=== PATIENT | male | born 1940 | race Caucasian/White ===

== ENCOUNTER 2021-07-11 01:20 | Inpatient (IN) ==
[2021-07-11] MEDS ORDERED: OPTIRAY 320 125ml IV ONE (01:41)
[2021-07-11] MEDS ORDERED: LORazepam 2 MG/1 ML VIAL ONE ×2 (01:43→02:24)
[2021-07-11 01:50] LABS: Basophils # (auto) 0.03 K/uL (0-0.2); Basophils % (auto) 0.4 %; Eosinophils # (auto) 0.33 K/uL (0-0.5); Eosinophils % (auto) 4.2 %; Hematocrit (blood only) 39.3 % (42-52); Hemoglobin 13.1 g/dL (14.0-18.0); Immature Granulocytes # (auto) 0.02 K/uL (0.00-0.02); Immature Granulocytes % (auto) 0.3 %; Lymphocytes # (auto) 2.77 K/uL (1.2-3.4); Lymphocytes % (auto) 34.8 %; Mean Corpuscular Hemoglobin 31.6 pg (25-34); Mean Corpuscular Hgb Conc 33.3 g/dL (32-36); Mean Corpuscular Volume 94.7 fL (80-100); Mean Platelet Volume 9.2 fL (7.4-10.4); Monocytes # (auto) 0.96 K/uL (0.11-0.59); Monocytes % (auto) 12.1 %; Neutrophils # (auto) 3.84 K/uL (1.4-6.5); Neutrophils % (auto) 48.2 %; Platelet Count 338 K/uL (130-400); RDW Coefficient of Variation 14.1 % (11.5-14.5); RDW Standard Deviation 48.8 fL (36.4-46.3); Red Blood Count 4.15 M/uL (4.7-6.1); White Blood Count 7.95 K/uL (4.8-10.8)
[2021-07-11 02:05] LABS: Alanine Aminotransferase 17 U/L (7-52); Albumin Globulin Ratio 1.3 (0.9-2); Albumin Level 3.9 gm/dl (3.4-5.0); Alkaline Phosphatase 117 U/L (34-104); Anion Gap 7 (3-11); Aspartate Aminotransferase 17 U/L (13-39); BUN Creatinine Ratio 15.2 (10-20); Bilirubin,Total 0.4 mg/dl (0.2-1.0); Blood Urea Nitrogen 16 mg/dl (6-23); Calcium 9.6 mg/dl (8.5-10.1); Carbon Dioxide 27 mmol/L (21-32); Chloride 105 mmol/L (98-107); Est GFR (African American) 76.8 ml/min; Est GFR (Non-African American) 66.3 ml/min; Globulin 2.9 gm/dl (2.5-4.0); Glucose 90 mg/dl (70-99(Fasting)); Magnesium 2.1 mg/dl (1.7-2.4); Sodium 139 mmol/L (136-145); Total Protein 6.8 gm/dl (6.0-8.3)
[2021-07-11 02:07] LABS: Troponin I High Sensitivity 16.2 pg/ml (0-20)
--- NOTE | 2021-07-11 02:11 | Emergency Department Note ---
History of Present Illness General Chief complaint: Seizure Time Seen by Provider: 07/11/21 01:22 Source: patient, family and EMS Mode of arrival: EMS Limitations: altered mental status History of Present Illness This patient is an 81-year-old male who comes in after having altered mental status. He went to bed at 930 and was normal and his said he woke up shouting and mumbling and confused. He similar episodes in the past and a s troke work-up and family tells me that he had microscopic brain bleeds. He is on no blood thinners. He was in his usual state of health they are in town visiting for a they are from [place]. He was fine all day has had no recent fever no trauma he does have a history of seizures and may have missed a dose of the lamictal. Paramedics called and they said that he was confused and had a right-sided facial droop they thought and so we called a stroke alert he immediately went to CAT scan her and I talked to family in the meantime. The patient did have a blood sugar in the field which was 96 and has stable vital signs. Home Medications Medication Instructions Recorded Confirmed Type acetaminophen 500 mg tablet 1,000 mg PO DIRECTED PRN 07/11/21 07/11/21 History (Tylenol Extra Strength) amlodipine 5 mg tablet 5 mg PO DAILY 07/11/21 07/11/21 History duloxetine 30 mg capsule,delayed 30 mg PO DAILY 07/11/21 07/11/21 History release (Cymbalta) ibuprofen 200 mg tablet (Advil) 400 - 600 mg PO DIRECTED PRN 07/11/21 07/11/21 History lamotrigine 100 mg tablet 200 mg PO BID #60 tab 07/11/21 07/11/21 Rx (Lamictal) pravastatin 80 mg tablet 80 mg PO HS 07/11/21 07/11/21 History sotalol 80 mg tablet 80 mg PO QAM 07/11/21 07/11/21 History tamsulosin 0.4 mg capsule (Flomax) 0.4 mg PO HS 07/11/21 07/11/21 History Allergies Allergy/AdvReac Type Severity Reaction Status Date / Time cefuroxime [From Ceftin] Allergy Intermediate ITCHINESS Verified 07/11/21 02:02 cephalexin [From Keflex] Allergy Intermediate ITCHINESS Verified 07/11/21 02:02 Past Med/Surg History Medical History (Updated 07/12/21 @ 12:09 by Jack Haque MD) Atrial fibrillation BPH (benign prostatic hyperplasia) Hard of hearing Hypertension Seizure Family History (Updated 07/11/21 @ 03:31 by Rox Horn DO) Other Family history non-contributory Social History Smoking Status: Unknown if ever smoked Hx Substance Use: No Preferred Language: [place] Islander Sharepoint Net Developer Required: No Current Living Situation: Family Feels Safe at Home: Yes Assistive Devices: None Immunizations: Past medical historyseizure history of stroke. Questionable brain bleed. He has had a watchman and A. fib. He does have some mild cognitive decline ac cording to family Social history he is and lives with his in [place] Review of Systems A total of 10 systems reviewed and were otherwise negative Physical Exam Vital Signs Vital Signs - 24 hr 07/11/21 01:39 07/11/21 01:40 07/11/21 01:50 Temperature 36.6 C Temperature Source Axillary Pulse Rate 73 116 H Pulse Rate from SpO2 Sensor 140 H Respiratory Rate 35 H 41 H 24 Respiratory Effort / Characteristics Non-Labored Spontaneous Respiratory Depth Normal Blood Pressure 174/111 H Blood Pressure Mean 132 Blood Pressure Position Lying Pulse Oximetry 99 95 Oxygen Delivery Method Room Air Non-rebreather Oxygen Flow Rate 15 Sepsis Recent Fever Within 48 Hours No Sepsis New/Unexplained Change in Mental Status Yes Sepsis Action Taken by Nursing No Action Required 07/11/21 02:00 07/11/21 02:10 Temperature Temperature Source Pulse Rate 144 H 146 H Pulse Rate from SpO2 Sensor Respiratory Rate 35 H 25 H Respiratory Effort / Characteristics Respiratory Depth Blood Pressure Blood Pressure Mean Blood Pressure Position Pulse Oximetry 98 98 Oxygen Delivery Method Non-rebreather Non-rebreather Oxygen Flow Rate 15 15 Sepsis Recent Fever Within 48 Hours Sepsis New/Unexplained Change in Mental Status Sepsis Action Taken by Nursing General: Well developed well nourished older male who is speaking full sentences but appears to be confused and anxious but in no acute respiratory distress, breathing comfortably on room air. Normal speech HEENT: Normal cephalic atraumatic. Pupils are equal round and reactive to light. Extraocular movements are intact. Oropharynx is pink with moist mucous membranes. No swelling of the mouth lips or tongue. No facial asymmetry or droop Neck: Supple with a midline trachea. No meningeal signs or stiffness, no JVD or bruits. No Stridor. Chest: Clear to auscultation bilaterally. No wheezes or rhonchi. No increased work of breathing. Heart: Regular rate and rhythm without murmurs or gallops. Abdomen: Soft nontender, nondistended without rebound guarding or rigidity. Extremities: No cyanosis clubbing or edema. No calf tenderness or assymetry Spine/Back. Non tender to palpation. No CVA tenderness Skin: Good turgor without rashes. Neurologic exam: Cranial nerves two through 12 are intact. Motor and sensation are intact and symmetrical throughout. No focal neurologic deficits. His speech is not slurred but he is clearly confused and does not answer questions appropriately Course Administered Medications Discontinued Medications Amlodipine Besylate (Amlodipine Besylate 5 Mg Tab) 5 mg PO DAILY ARISTIDES Stop: 08/10/21 08:59 Last Admin: 07/11/21 08:33 Dose: 5 mg Documented by: [id number] Duloxetine HCl (Duloxetine Hcl 30 Mg Cap) 30 mg PO DAILY ARISTIDES Stop: 08/10/21 08:59 Last Admin: 07/11/21 08:34 Dose: 30 mg Documented by: [id number] Levetiracetam 2,000 mg/ Sodium (Chloride) 270 mls @ 999 mls/hr IV NOW STA Stop: 07/11/21 02:19 Last Infusion: 07/11/21 02:50 Dose: 0 mls/hr Documented by: [id number] Admin: 07/11/21 02:26 Dose: 999 mls/hr Documented by: [id number] Lactated Ringer's (Lr) 1,000 mls @ 100 mls/hr IV .Q10H ARISTIDES Stop: 07/12/21 00:49 Last Infusion: 07/11/21 13:09 Dose: 0 mls/hr Documented by: [id number] Admin: 07/11/21 06:08 Dose: 100 mls/hr Documented by: [id number] Ioversol (Optiray 320 125ml) 125 ml IV ONCE ONE Stop: 07/11/21 01:42 Last Admin: 07/11/21 01:41 Dose: 118 ml Documented by: [id number] Lamotrigine (Lamotrigine 100 Mg Tab) 200 mg PO QAM ARISTIDES Stop: 08/10/21 08:59 Last Admin: 07/11/21 08:34 Dose: 200 mg Documented by: [id number] Lorazepam (Lorazepam 2 Mg/1 Ml Vial) Confirm Administered Dose 2 mg .ROUTE .STK- MED ONE Stop: 07/11/21 01:44 Last Admin: 07/11/21 02:00 Dose: 2 mg Documented by: [id number] Lorazepam (Lorazepam 2 Mg/1 Ml Vial) 1 mg IV NOW STA Stop: 07/11/21 02:24 Last Admin: 07/11/21 02:25 Dose: 1 mg Documented by: [id number] Lorazepam (Lorazepam 2 Mg/1 Ml Vial) Confirm Administered Dose 2 mg .ROUTE .STK- MED ONE Stop: 07/11/21 02:25 Last Admin: 07/11/21 02:26 Dose: Not Given Documented by: [id number] Sotalol HCl (Sotalol Hcl 80 Mg Tab) [facility] Stop: 08/10/21 08:59 Last Admin: 07/11/21 08:34 Dose: 80 mg Documented by: [id number] Critical Care Time Critical Care Time: Yes Total Critical Care Time: 45 Due to the patient's acute neurologic event, concern for stroke, consultation with stroke neurology, need to give expediant care, seizures and frequent neurologic reassessment with multiple medications given, I have personally spent greater than 45 minutes of critical care time in the direct management of this patient. This includes bedside care, interpretation of diagnostic studies, and testing, discussion with consultants, patient, and family members, and other required patient management activities. This 30 minutes is in excess of all separately billable procedures. Medical Decision Making Differential Diagnosis Stroke, intracranial hemorrhage, seizure, TIA, electrolyte or metabolic abnormality, intracranial mass, arrhythmia Medical Records Attestation: I reviewed the patient's medical records. Home Medications Current Medication List: was personally reviewed by me Laboratory Data Attestation: I reviewed the patient's lab results. Result diagrams: 07/11/21 01:20 07/11/21 01:20 Lab Results 07/11/21 07/11/21 07/11/21 Range/Units 01:20 01:20 01:20 WBC 7.95 (4.8-10.8) K/uL RBC 4.15 L (4.7-6.1) M/uL Hgb 13.1 L (14.0-18.0) g/dL Hct 39.3 L (42-52) % MCV 94.7 (80-100) fL MCH 31.6 (25-34) pg MCHC 33.3 (32-36) g/dL RDW Std Deviation 48.8 H (36.4-46.3) fL RDW Coeff of Jm 14.1 (11.5-14.5) % Plt Count 338 (130-400) K/uL MPV 9.2 (7.4-10.4) fL Immature Gran % (Auto) 0.3 % Neut % (Auto) 48.2 % Lymph % (Auto) 34.8 % [place] % (Auto) 12.1 % Eos % (Auto) 4.2 % Baso % (Auto) 0.4 % Neut # (Auto) 3.84 (1.4-6.5) K/uL Lymph # (Auto) 2.77 (1.2-3.4) K/uL [place] # (Auto) 0.96 H (0.11-0.59) K/uL Eos # (Auto) 0.33 (0-0.5) K/uL Baso # (Auto) 0.03 (0-0.2) K/uL Immature Gran # (Auto) 0.02 (0.00-0.02) K/uL Absolute Nucleated RBC SERVICE STATION CONSOLE OPERATOR Nucleated RBC % (auto) SERVICE STATION CONSOLE OPERATOR Neutrophils % (Manual) SERVICE STATION CONSOLE OPERATOR Band Neutrophils % SERVICE STATION CONSOLE OPERATOR Lymphocytes % (Manual) SERVICE STATION CONSOLE OPERATOR Prolymphocyte % SERVICE STATION CONSOLE OPERATOR Reactive Lymphs % (Man) SERVICE STATION CONSOLE OPERATOR Monocytes % (Manual) SERVICE STATION CONSOLE OPERATOR Eosinophils % (Manual) SERVICE STATION CONSOLE OPERATOR Basophils % (Manual) SERVICE STATION CONSOLE OPERATOR Metamyelocytes % (Man) SERVICE STATION CONSOLE OPERATOR Myelocytes % (Man) SERVICE STATION CONSOLE OPERATOR Promyelocytes % (Man) SERVICE STATION CONSOLE OPERATOR Blast Cells % (Manual) SERVICE STATION CONSOLE OPERATOR Plasma Cell % (Manual) SERVICE STATION CONSOLE OPERATOR Other Cells % SERVICE STATION CONSOLE OPERATOR Nucleated RBC % SERVICE STATION CONSOLE OPERATOR Neutrophils # (Manual) SERVICE STATION CONSOLE OPERATOR Band Neutrophils # SERVICE STATION CONSOLE OPERATOR Total Absolute Neuts SERVICE STATION CONSOLE OPERATOR Lymphocytes # (Manual) SERVICE STATION CONSOLE OPERATOR Prolymphocyte # SERVICE STATION CONSOLE OPERATOR Reactive Lymphs # SERVICE STATION CONSOLE OPERATOR Total Abs Lymphocytes SERVICE STATION CONSOLE OPERATOR Monocytes # (Manual) SERVICE STATION CONSOLE OPERATOR Eosinophils # (Manual) SERVICE STATION CONSOLE OPERATOR Basophils # (Manual) SERVICE STATION CONSOLE OPERATOR Metamyelocytes # (Man) SERVICE STATION CONSOLE OPERATOR Myelocytes # (Manual) SERVICE STATION CONSOLE OPERATOR Promyelocytes # (Man) SERVICE STATION CONSOLE OPERATOR Blast Cells # (Man) SERVICE STATION CONSOLE OPERATOR Plasma Cell # (Manual) SERVICE STATION CONSOLE OPERATOR Other Cells # SERVICE STATION CONSOLE OPERATOR Nucleated RBCs # (Man) SERVICE STATION CONSOLE OPERATOR Hypersegmented Neuts SERVICE STATION CONSOLE OPERATOR Hyposegmented Neuts SERVICE STATION CONSOLE OPERATOR Hypogranular Neuts SERVICE STATION CONSOLE OPERATOR Large Granular Lymphs SERVICE STATION CONSOLE OPERATOR # Lrg Granular Lymphs SERVICE STATION CONSOLE OPERATOR Hairy Cells SERVICE STATION CONSOLE OPERATOR Smudge Cells SERVICE STATION CONSOLE OPERATOR Toxic Granulation SERVICE STATION CONSOLE OPERATOR Toxic Vacuolation SERVICE STATION CONSOLE OPERATOR Dohle Bodies SERVICE STATION CONSOLE OPERATOR Patsy Rods SERVICE STATION CONSOLE OPERATOR Platelet Estimate SERVICE STATION CONSOLE OPERATOR Hypogranular Platelets SERVICE STATION CONSOLE OPERATOR Clumped Platelets SERVICE STATION CONSOLE OPERATOR Giant Platelets SERVICE STATION CONSOLE OPERATOR Platelet Satelliting SERVICE STATION CONSOLE OPERATOR RBC Morphology SERVICE STATION CONSOLE OPERATOR Polychromasia SERVICE STATION CONSOLE OPERATOR Hypochromasia SERVICE STATION CONSOLE OPERATOR Poikilocytosis SERVICE STATION CONSOLE OPERATOR Basophilic Stippling SERVICE STATION CONSOLE OPERATOR Anisocytosis SERVICE STATION CONSOLE OPERATOR Microcytosis SERVICE STATION CONSOLE OPERATOR Macrocytosis SERVICE STATION CONSOLE OPERATOR Spherocytes SERVICE STATION CONSOLE OPERATOR Pappenheimer Bodies SERVICE STATION CONSOLE OPERATOR Sickle Cells SERVICE STATION CONSOLE OPERATOR Target Cells SERVICE STATION CONSOLE OPERATOR Tear Drop Cells SERVICE STATION CONSOLE OPERATOR Ovalocytes SERVICE STATION CONSOLE OPERATOR Stomatocytes SERVICE STATION CONSOLE OPERATOR Chavez-Chassell Bodies SERVICE STATION CONSOLE OPERATOR Echinocytes SERVICE STATION CONSOLE OPERATOR Acanthocytes (Spur) SERVICE STATION CONSOLE OPERATOR Rouleaux SERVICE STATION CONSOLE OPERATOR RBC Agglutinates SERVICE STATION CONSOLE OPERATOR Schistocytes SERVICE STATION CONSOLE OPERATOR RBC Morph Comment SERVICE STATION CONSOLE OPERATOR Sezary Cell SERVICE STATION CONSOLE OPERATOR PT Cancelled INR Cancelled APTT Cancelled PTT Ratio Cancelled Sodium 139 (136-145) mmol/L Potassium 4.0 (3.5-5.1) mmol/L Chloride 105 (98-107) mmol/L Carbon Dioxide 27 (21-32) mmol/L Anion Gap 7 (3-11) BUN 16 (6-23) mg/dl Creatinine 1.05 (0.6-1.4) mg/dl Est Cr Clr Drug Dosing Not Reportable Est GFR ( Amer) 76.8 ml/min Est GFR (Non-Af Amer) 66.3 ml/min BUN/Creatinine Ratio 15.2 (10-20) Glucose 90 (70-99(Fasting)) mg/dl POC Glucose (70-99) mg/dl Calcium 9.6 (8.5-10.1) mg/dl Magnesium 2.1 (1.7-2.4) mg/dl Total Bilirubin 0.4 (0.2-1.0) mg/dl AST 17 (13-39) U/L ALT 17 (7-52) U/L Alkaline Phosphatase 117 H (34-104) U/L Troponin I High Sens 16.2 (0-20) pg/ml Total Protein 6.8 (6.0-8.3) gm/dl Albumin 3.9 (3.4-5.0) gm/dl Globulin 2.9 (2.5-4.0) gm/dl Albumin/Globulin Ratio 1.3 (0.9-2) 07/11/21 Range/Units 01:39 WBC (4.8-10.8) K/uL RBC (4.7-6.1) M/uL Hgb (14.0-18.0) g/dL Hct (42-52) % MCV (80-100) fL MCH (25-34) pg MCHC (32-36) g/dL RDW Std Deviation (36.4-46.3) fL RDW Coeff of Jm (11.5-14.5) % Plt Count (130-400) K/uL MPV (7.4-10.4) fL Immature Gran % (Auto) % Neut % (Auto) % Lymph % (Auto) % [place] % (Auto) % Eos % (Auto) % Baso % (Auto) % Neut # (Auto) (1.4-6.5) K/uL Lymph # (Auto) (1.2-3.4) K/uL [place] # (Auto) (0.11-0.59) K/uL Eos # (Auto) (0-0.5) K/uL Baso # (Auto) (0-0.2) K/uL Immature Gran # (Auto) (0.00-0.02) K/uL Absolute Nucleated RBC Nucleated RBC % (auto) Neutrophils % (Manual) Band Neutrophils % Lymphocytes % (Manual) Prolymphocyte % Reactive Lymphs % (Man) Monocytes % (Manual) Eosinophils % (Manual) Basophils % (Manual) Metamyelocytes % (Man) Myelocytes % (Man) Promyelocytes % (Man) Blast Cells % (Manual) Plasma Cell % (Manual) Other Cells % Nucleated RBC % Neutrophils # (Manual) Band Neutrophils # Total Absolute Neuts Lymphocytes # (Manual) Prolymphocyte # Reactive Lymphs # Total Abs Lymphocytes Monocytes # (Manual) Eosinophils # (Manual) Basophils # (Manual) Metamyelocytes # (Man) Myelocytes # (Manual) Promyelocytes # (Man) Blast Cells # (Man) Plasma Cell # (Manual) Other Cells # Nucleated RBCs # (Man) Hypersegmented Neuts Hyposegmented Neuts Hypogranular Neuts Large Granular Lymphs # Lrg Granular Lymphs Hairy Cells Smudge Cells Toxic Granulation Toxic Vacuolation Dohle Bodies Patsy Rods Platelet Estimate Hypogranular Platelets Clumped Platelets Giant Platelets Platelet Satelliting RBC Morphology Polychromasia Hypochromasia Poikilocytosis Basophilic Stippling Anisocytosis Microcytosis Macrocytosis Spherocytes Pappenheimer Bodies Sickle Cells Target Cells Tear Drop Cells Ovalocytes Stomatocytes Chavez-Chassell Bodies Echinocytes Acanthocytes (Spur) Rouleaux RBC Agglutinates Schistocytes RBC Morph Comment Sezary Cell PT INR APTT PTT Ratio Sodium (136-145) mmol/L Potassium (3.5-5.1) mmol/L Chloride (98-107) mmol/L Carbon Dioxide (21-32) mmol/L Anion Gap (3-11) BUN (6-23) mg/dl Creatinine (0.6-1.4) mg/dl Est Cr Clr Drug Dosing Est GFR ( Amer) ml/min Est GFR (Non-Af Amer) ml/min BUN/Creatinine Ratio (10-20) Glucose (70-99(Fasting)) mg/dl POC Glucose 82 (70-99) mg/dl Calcium (8.5-10.1) mg/dl Magnesium (1.7-2.4) mg/dl Total Bilirubin (0.2-1.0) mg/dl AST (13-39) U/L ALT (7-52) U/L Alkaline Phosphatase (34-104) U/L Troponin I High Sens (0-20) pg/ml Total Protein (6.0-8.3) gm/dl Albumin (3.4-5.0) gm/dl Globulin (2.5-4.0) gm/dl Albumin/Globulin Ratio (0.9-2) Imaging Data Attestation: I personally reviewed and interpreted this imaging study as follows: My Impression: Head CTno hemorrhage or mass-effect. Radiologist's Impression: CTA of the head and neck as well as CT of the headstat rad readno acute findings ECG Data Attestation: I personally reviewed and interpreted this ECG as follows: Indication: + weakness Rate (beats per minute): 78 Rhythm: + normal sinus ECG Intervals/blocks: + First degree AV block, + Right Bundle branch block and + Prolonged QT ECG [place]: + Right axis deviation ECG ST segments: + Normal ST segments ECG Findings: + Other (Poor baseline) Comparison ECG Date: no prior available Additional Comments: EKG #2: Atrial fibrillation with rapid ventricular response and underlying bundle branch block. Compared to EKG #1 rate has increased MDM Narrative This patient comes in as described above aged strokes call a stroke alert we took him straight to CAT scan I saw him immediately upon arrival he was very confused but was otherwise nonfocal I do not appreciate a facial droop. He does have a seizure history is concerned that he may have had a seizure and was postictal. We did the CAT scans I reviewed the CAT scan of the head and talk to [facility], Dr. Soto. She did not recommend tPA based on the timeframe, the symptoms and history of possible microhemorrhages as well as the likelihood of a another diagnosis such as a postictal state. On my review of the CT, I do not see any hemorrhage or mass-effect the radiologist did call and confirm that there is no abnormality seen on the CTA of the head or neck. In the meantime I did talk to family and when reevaluating the patient he had a seizure this lasted less than a minute. I did order 2 mg of IV Ativan however he stopped seizing before he got the meds so he we gave him 1 mg Ativam IV initially and he quickly became post ictal and and somewhat agitated trying to get out of bed and confused so we gave another milligram of Ativan and had to us e some soft restraints. I also did load him with Keppra for prevention of any further seizures 2 g IV. I talked to Kings Pedroza our pharmacist who agreed with the plan. Have talked to the family multiple times they did tell me that he did not do well with Keppra because he had some cognitive issues and potentially some ambulatory issues but no allergic type reaction. I talked to him about risk and benefits I think for now we need to load him with something so he has no further seizures they are agreement with this it may be that there is a better long-term medication. Keppra in this situation will have the least interactions likely and hopefully prevent further seizures. The patient sherri coe was postictal and did require additional IV Ativan 1 mg and we used some soft restraints. He was started to talk and mumble and was waking up but was more agitated so I eventually gave another milligram of Ativan. He has no electrolyte or metabolic abnormalities which would cause him to seize he is no elevation of his troponin. His EKG just so A. fib that has a rapid rate. I suspect that the rapid rate is most likely from his agitation at this point. He has nothing to suggest a primary cardiac event. I did talk to the family at length the patient and is no longer seizing but he does remain postictal and somewhat confused. I do think he needs to be admitted for observation and m onitoring for further seizures. I have consulted Dr. Rox Horn to see the patient in the ER. Continuous cardiac monitoring: Orders placed in EMR for continuous cardiac monitoring. Upon my interpretation the patient was noted to be in A. fib with a rate of 120. He was agitated at the time however Impression & Plan Seizure, Atrial fibrillation, Altered mental status, Post-ictal state, Lab test negative for COVID-19 virus Discharge Plan Visit Data Chief Complaint: Seizure ED Provider: Jack Haque Discharge Problem: Seizure, Atrial fibrillation, Altered mental status, Post-ictal state, Lab test negative for COVID-19 virus Patient Disposition: Admitted As Inpatient Discharge Instructions Interventions: ED Discharge Assessment Last Done: 07/11/21 04:13 Discharge Problem: Atrial fibrillation Qualifiers: Atrial fibrillation type: unspecified Qualified Code(s): I48.91 - Unspecified atrial fibrillation Altered mental status Qualifiers: Altered mental status type: unspecified Qualified Code(s): R41.82 - Altered mental status, unspecified
[2021-07-11] MEDS ORDERED: LORazepam 2 MG/1 ML VIAL IV STA (02:23)
--- NOTE | 2021-07-11 03:36 | History & Physical Report ---
Date of Service July 11, 2021 Assessment & Plan (1) Altered mental status: Plan: Confusion. Most likely multi-factorial. Post-ictal + Ativan + missed medications, possible sundowning effect as well. Labs are largely unremarkable. CT Head and CTA Head/Neck with chronic changes. -Admit to PCU -Maintain 1:1 sitter -Soft limb restraints as patient is trying to remove medical equipment -Check UA, TSH, Ammonia for encephalopathy workup -Check MRI Brain -Frequent orientation -Avoid delirium-inducing medications (2) Seizure: Plan: reports longstanding history of seizures. He had several over the last 15 years. Was previously on Keppra which was discontinued due to minor side effects. Keppra loaded + Ativan in ER -Continue Lamictal -Seizure precautions -Check MRI Brain -Consider Neuro consultation if patient continues to seize (3) BPH (benign prostatic hyperplasia): Plan: Chronic. Stable -Continue Tamsulosin -Bladder scan as needed (4) Hypertension: Plan: Blood pressure acceptable -Continue Amlodipine -Monitor (5) Atrial fibrillation: Plan: Tachycardic with agitation, heart rate improves as patient calms down -Continue Sotalol -No anticoagulation - ?history of microhemorrhages in brain? Plan: F/E/N - LR at 100mL/hr x 2L, electroltyes WNL, regular diet as tolerated Ppx - low risk for DVT Code - Full per discussion with Dispo -Admit to PCU History of Present Illness Chief Complaint: seizure Primary Care Provider: DAREN SIMMONS Vladislav Alvarez is an 80yo male with history of AF, HTN, BPH presenting with confusion. Patient is from out of [facility], [facility]. He arrived in town with family yesterday for a tomorrow. Patient was in his usual state of health when he went to bed around 21:30. His reports he then woke up shouting, mumbling and confused. EMS was called - possible right facial droop noted. He presented to [facility] as a Code Stroke. Imaging obtained and unremarkable for acute hemorrhage or sig nificant stenosis/aneurysm. Patient then had a witnessed tonic-clonic seizure in the ER lasting < 1minute. , daugher and son-in-law are at bedside and provide additional history. The state the patient had no complaints during the day. He was eating well and acting his usual. He did possibly miss his PM medications. Daughter states that patient has become confused in the past with missing his medications. In the ER he was administered 3mg Ativan IV as well as Keppra load. He was confused and slightly combative during my encounter. He is unable to answer questions, follow commands or participate in the exam. Family is at bedside and is able to calm him down slightly. Allergies Allergy/AdvReac Type Severity Reaction Status Date / Time cefuroxime [From Ceftin] Allergy Intermediate ITCHINESS Verified 07/11/21 02:02 cephalexin [From Keflex] Allergy Intermediate ITCHINESS Verified 07/11/21 02:02 Home Medications Medication Instructions Recorded Confirmed Type acetaminophen 500 mg tablet 1,000 mg PO DIRECTED PRN 07/11/21 07/11/21 Histor y (Tylenol Extra Strength) amlodipine 5 mg tablet 5 mg PO DAILY 07/11/21 07/11/21 History duloxetine 30 mg capsule,delayed 30 mg PO DAILY 07/11/21 07/11/21 History release (Cymbalta) ibuprofen 200 mg tablet (Advil) 400 - 600 mg PO DIRECTED PRN 07/11/21 07/11/21 History lamotrigine 100 mg tablet See Rx Instructions .ROUTE .COMPLEX 07/11/21 07/11/21 History (Lamictal) pravastatin 80 mg tablet 80 mg PO HS 07/11/21 07/11/21 History sotalol 80 mg tablet 80 mg PO QAM 07/11/21 07/11/21 History tamsulosin 0.4 mg capsule (Flomax) 0.4 mg PO HS 07/11/21 07/11/21 History Past Med/Surg History Medical History (Updated 07/11/21 @ 03:30 by Rox Horn DO) Atrial fibrillation BPH (benign prostatic hyperplasia) Hard of hearing Hypertension Seizure Family History (Updated 07/11/21 @ 03:31 by Rox Horn DO) Other Family history non-contributory Social History Smoking Status: Unknown if ever smoked Preferred Language: Israeli Feels Safe at Home: Yes Review of Systems Review of Systems: Unobtainable due to cognitive status Physical Exam Physical Exam: General: patient restless, attempting to climb out of bed, does not answer questions or follow commands Skin: warm, dry, intact, no rashes or lesions HEENT: NC/AT, PERRL, anicteric sclera, conjunctiva without injection, external ear normal to inspection and nontender, nares patent, moist mucus membranes, dentition intact, no oropharyngeal lesions, neck supple, trachea midline, no LAD, no thyromegaly, no JVD Heart: +S1/S2, irregularly irregular, tachycardic, no m/r/g Lungs: equal air entry bilaterally, no rales/rhonchi/wheezes Abd: +BS, soft, NT/ND, no masses/organomegaly/ascites Ext: cool, 2+ pulses in UE/LE bilaterally, no clubbing/cyanosis or edema Neuro: patient confused, combative, moving all extremities with equal strength Results & Data Results & Data ([facility]) Vital Signs (Past 12 Hours) Vital Signs Temp Pulse Resp BP Pulse Ox 07/11/21 02:40 127 H 32 H 99 07/11/21 02:32 131 H 19 149/110 H 94 07/11/21 02:30 145 H 18 99 07/11/21 02:22 117 H 21 167/103 H 98 07/11/21 02:20 124 H 19 99 07/11/21 02:10 146 H 25 H 98 07/11/21 02:00 144 H 35 H 98 07/11/21 01:50 24 95 07/11/21 01:40 116 H 41 H 07/11/21 01:39 36.6 C 73 35 H 174/111 H 99 Laboratory Results Laboratory Results WBC 7.95 K/uL (4.8-10.8) 07/11/21 01:20 RBC 4.15 M/uL (4.7-6.1) L 07/11/21 01:20 Hgb 13.1 g/dL (14.0-18.0) L 07/11/21 01:20 Hct 39.3 % (42-52) L 07/11/21 01:20 MCV 94.7 fL (80-100) 07/11/21 01:20 MCH 31.6 pg (25-34) 07/11/21 01:20 MCHC 33.3 g/dL (32-36) 07/11/21 01:20 RDW Std Deviation 48.8 fL (36.4-46.3) H 07/11/21 01:20 RDW Coeff of Jm 14.1 % (11.5-14.5) 07/11/21 01:20 Plt Count 338 K/uL (130-400) 07/11/21 01:20 MPV 9.2 fL (7.4-10.4) 07/11/21 01:20 Immature Gran % (Auto) 0.3 % 07/11/21 01:20 Neut % (Auto) 48.2 % 07/11/21 01:20 Lymph % (Auto) 34.8 % 07/11/21 01:20 [place] % (Auto) 12.1 % 07/11/21 01:20 Eos % (Auto) 4.2 % 07/11/21 01:20 Baso % (Auto) 0.4 % 07/11/21 01:20 Neut # (Auto) 3.84 K/uL (1.4-6.5) 07/11/21 01:20 Lymph # (Auto) 2.77 K/uL (1.2-3.4) 07/11/21 01:20 [place] # (Auto) 0.96 K/uL (0.11-0.59) H 07/11/21 01:20 Eos # (Auto) 0.33 K/uL (0-0.5) 07/11/21 01:20 Baso # (Auto) 0.03 K/uL (0-0.2) 07/11/21 01:20 Immature Gran # (Auto) 0.02 K/uL (0.00-0.02) 07/11/21 01:20 Absolute Nucleated RBC COGNOS ANALYST 07/11/21 01:20 Nucleated RBC % (auto) COGNOS ANALYST 07/11/21 01:20 Neutrophils % (Manual) COGNOS ANALYST 07/11/21 01:20 Band Neutrophils % COGNOS ANALYST 07/11/21 01:20 Lymphocytes % (Manual) COGNOS ANALYST 07/11/21 01:20 Prolymphocyte % COGNOS ANALYST 07/11/21 01:20 Reactive Lymphs % (Man) COGNOS ANALYST 07/11/21 01:20 Monocytes % (Manual) COGNOS ANALYST 07/11/21 01:20 Eosinophils % (Manual) COGNOS ANALYST 07/11/21 01:20 Basophils % (Manual) COGNOS ANALYST 07/11/21 01:20 Metamyelocytes % (Man) COGNOS ANALYST 07/11/21 01:20 Myelocytes % (Man) COGNOS ANALYST 07/11/21 01:20 Promyelocytes % (Man) COGNOS ANALYST 07/11/21 01:20 Blast Cells % (Manual) COGNOS ANALYST 07/11/21 01:20 Plasma Cell % (Manual) COGNOS ANALYST 07/11/21 01:20 Other Cells % COGNOS ANALYST 07/11/21 01:20 Nucleated RBC % COGNOS ANALYST 07/11/21 01:20 Neutrophils # (Manual) COGNOS ANALYST 07/11/21 01:20 Band Neutrophils # COGNOS ANALYST 07/11/21 01:20 Total Absolute Neuts COGNOS ANALYST 07/11/21 01:20 Lymphocytes # (Manual) COGNOS ANALYST 07/11/21 01:20 Prolymphocyte # COGNOS ANALYST 07/11/21 01:20 Reactive Lymphs # COGNOS ANALYST 07/11/21 01:20 Total Abs Lymphocytes COGNOS ANALYST 07/11/21 01:20 Monocytes # (Manual) COGNOS ANALYST 07/11/21 01:20 Eosinophils # (Manual) COGNOS ANALYST 07/11/21 01:20 Basophils # (Manual) COGNOS ANALYST 07/11/21 01:20 Metamyelocytes # (Man) COGNOS ANALYST 07/11/21 01:20 Myelocytes # (Manual) COGNOS ANALYST 07/11/21 01:20 Promyelocytes # (Man) COGNOS ANALYST 07/11/21 01:20 Blast Cells # (Man) COGNOS ANALYST 07/11/21 01:20 Plasma Cell # (Manual) COGNOS ANALYST 07/11/21 01:20 Other Cells # COGNOS ANALYST 07/11/21 01:20 Nucleated RBCs # (Man) COGNOS ANALYST 07/11/21 01:20 Hypersegmented Neuts COGNOS ANALYST 07/11/21 01:20 Hyposegmented Neuts COGNOS ANALYST 07/11/21 01:20 Hypogranular Neuts COGNOS ANALYST 07/11/21 01:20 Large Granular Lymphs COGNOS ANALYST 07/11/21 01:20 # Lrg Granular Lymphs COGNOS ANALYST 07/11/21 01:20 Hairy Cells COGNOS ANALYST 07/11/21 01:20 Smudge Cells COGNOS ANALYST 07/11/21 01:20 Toxic Granulation COGNOS ANALYST 07/11/21 01:20 Toxic Vacuolation COGNOS ANALYST 07/11/21 01:20 Dohle Bodies COGNOS ANALYST 07/11/21 01:20 Patsy Rods COGNOS ANALYST 07/11/21 01:20 Platelet Estimate COGNOS ANALYST 07/11/21 01:20 Hypogranular Platelets COGNOS ANALYST 07/11/21 01:20 Clumped Platelets COGNOS ANALYST 07/11/21 01:20 Giant Platelets COGNOS ANALYST 07/11/21 01:20 Platelet Satelliting COGNOS ANALYST 07/11/21 01:20 RBC Morphology COGNOS ANALYST 07/11/21 01:20 Polychromasia COGNOS ANALYST 07/11/21 01:20 Hypochromasia COGNOS ANALYST 07/11/21 01:20 Poikilocytosis COGNOS ANALYST 07/11/21 01:20 Basophilic Stippling COGNOS ANALYST 07/11/21 01:20 Anisocytosis COGNOS ANALYST 07/11/21 01:20 Microcytosis COGNOS ANALYST 07/11/21 01:20 Macrocytosis COGNOS ANALYST 07/11/21 01:20 Spherocytes COGNOS ANALYST 07/11/21 01:20 Pappenheimer Bodies COGNOS ANALYST 07/11/21 01:20 Sickle Cells COGNOS ANALYST 07/11/21 01:20 Target Cells COGNOS ANALYST 07/11/21 01:20 Tear Drop Cells COGNOS ANALYST 07/11/21 01:20 Ovalocytes COGNOS ANALYST 07/11/21 01:20 Stomatocytes COGNOS ANALYST 07/11/21 01:20 [place] Bodies COGNOS ANALYST 07/11/21 01:20 Echinocytes COGNOS ANALYST 07/11/21 01:20 Acanthocytes (Spur) COGNOS ANALYST 07/11/21 01:20 Rouleaux COGNOS ANALYST 07/11/21 01:20 RBC Agglutinates COGNOS ANALYST 07/11/21 01:20 Schistocytes COGNOS ANALYST 07/11/21 01:20 RBC Morph Comment COGNOS ANALYST 07/11/21 01:20 Sezary Cell COGNOS ANALYST 07/11/21 01:20 PT Cancelled 07/11/21 01:20 INR Cancelled 07/11/21 01:20 APTT Cancelled 07/11/21 01:20 PTT Ratio Cancelled 07/11/21 01:20 Sodium 139 mmol/L (136-145) 07/11/21 01:20 Potassium 4.0 mmol/L (3.5-5.1) 07/11/21 01:20 Chloride 105 mmol/L (98-107) 07/11/21 01:20 Carbon Dioxide 27 mmol/L (21-32) 07/11/21 01:20 Anion Gap 7 (3-11) 07/11/21 01:20 BUN 16 mg/dl (6-23) 07/11/21 01:20 Creatinine 1.05 mg/dl (0.6-1.4) 07/11/21 01:20 Est Cr Clr Drug Dosing Not Reportable 07/11/21 01:20 Est GFR ( Amer) 76.8 ml/min 07/11/21 01:20 Est GFR (Non-Af Amer) 66.3 ml/min 07/11/21 01:20 BUN/Creatinine Ratio 15.2 (10-20) 07/11/21 01:20 Glucose 90 mg/dl (70-99(Fasting)) 07/11/21 01:20 POC Glucose 82 mg/dl (70-99) 07/11/21 01:39 Calcium 9.6 mg/dl (8.5-10.1) 07/11/21 01:20 Magnesium 2.1 mg/dl (1.7-2.4) 07/11/21 01:20 Total Bilirubin 0.4 mg/dl (0.2-1.0) 07/11/21 01:20 AST 17 U/L (13-39) 07/11/21 01:20 ALT 17 U/L (7-52) 07/11/21 01:20 Alkaline Phosphatase 117 U/L (34-104) H 07/11/21 01:20 Troponin I High Sens 16.2 pg/ml (0-20) 07/11/21 01:20 Total Protein 6.8 gm/dl (6.0-8.3) 07/11/21 01:20 Albumin 3.9 gm/dl (3.4-5.0) 07/11/21 01:20 Globulin 2.9 gm/dl (2.5-4.0) 07/11/21 01:20 Albumin/Globulin Ratio 1.3 (0.9-2) 07/11/21 01:20 SARS-CoV-2, RNA, NAAT NEGATIVE (NEGATIVE) 07/11/[address] Head - per STAT rad - moderate brain volume loss. Mild chronic ischemic changes. 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 Sinuses, mastoids and the bones are intact. Impression: No acute findings CTA Neck - per STAT rad - minimal atherosclerosis of the aortic arch. The right carotids are intact. Mild atherosclerosis of the left carotids. The vertebral arteries are intact. Upper lung lawler are clesr. Soft tissue structures are intact. No acute findings. Code Status & VTE Plan VTE Prophylaxis Plan VTE Prophylaxis will be ordered: Yes PG Care Time/CCT Total # of Minutes Spent Total Time Spent with Patient: Total time spent is greater than 50% in coordination of care (as documented) at patient's floor/unit and/or counseling patient: Coding Level of Care Code 44152 Initial Inpt Care Lvl 3 Diagnoses BPH (benign prostatic hyperplasia) N40.0 Hypertension I10 Atrial fibrillation I48.91 Atrial fibrillation type: unspecified Seizure R56.9 Altered mental status R41.82 Altered mental status type: unspecified (1) Atrial fibrillation Atrial fibrillation type: unspecified Qualified Code(s): I48.91 - Unspecified atrial fibrillation (2) Altered mental status Altered mental status type: unspecified Qualified Code(s): R41.82 - Altered mental status, unspecified
[2021-07-11] MEDS ORDERED: POLYETHYLENE (MIRALAX) 17 GM PACK PO PRN (04:50)
[2021-07-11] MEDS ORDERED: ACETAMINOPHEN 325 MG TAB PO PRN (04:50)
[2021-07-11] MEDS ORDERED: LACTATED RINGER'S 1,000 ML IV SCH (04:50)
[2021-07-11] MEDS ORDERED: DOCUSATE SODIUM 100 MG CAP PO PRN (04:50)
--- NOTE | 2021-07-11 07:20 | CT Scan Report ---
UNENHANCED CT OF THE BRAIN; CT ANGIOGRAM OF THE BRAIN; CT ANGIOGRAM OF THE NECK CLINICAL HISTORY: Change in mental status. Generalized weakness. Stroke like symptoms. COMPARISON STUDY: No priors. TECHNIQUE: Unenhanced axial CT scan of the brain is performed. Subsequently, following the IV adminis tration of 118 of [address] 320, CT angiogram of the head and neck was performed from the aortic arch t o the vertex. Images are reviewed in the axial, sagittal, and coronal planes. 3-D MIPS images are cre ated and assessed. IV contrast was administered without complication. All measurements were calculate d based on NASCET criteria. A dose lowering technique was utilized adhering to the principles of ALA RA. CT DOSE: 1222.97 mGy.cm FINDINGS: Brain parenchyma: There is age-related involutional change noting moderate subcortical and periventri cular microangiopathic disease. Right occipital encephalomalacia is consistent with a remote infarct. There is loss of rodrigues-white matter differentiation in the left occipital lobe which represent a suba cute or chronic infarct. There is no hemorrhage, mass effect, or evidence of acute territorial ischem ia by CT criteria. There is no evidence of enhancing mass lesion on the angiogram phase images. The v entricles, sulci, and cisterns are prominent secondary to involutional change. No extra-axial fluid collection is seen. Thoracic aorta: There is atherosclerotic calcification of the thoracic aorta. Visualized portions of the thoracic aorta are normal in caliber. The aortic arch demonstrates standard 3-vessel anatomy. Right carotid arterial system: The right common carotid artery is widely patent, as are the right int ernal and external carotid arteries. There is mild ectasia of the distal internal carotid artery whic h measures up to 10 mm in diameter. 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 Left carotid arterial system: The left common carotid artery is widely patent, as are the left internal security manager al and external carotid arteries. Mild plaque is noted in the carotid bulb. Vertebral arteries: The vertebral arteries are widely patent bilaterally and codominant. Subclavian arteries: Widely patent bilaterally. Intracranial vasculature: There is atherosclerotic calcification of the cavernous carotid and vertebr al arteries. There is a right posterior communicating artery. The internal carotid arteries are paten t at the skull base, as are the anterior and middle cerebral arteries bilaterally. The vertebrobasila r system and posterior cerebral arteries are widely patent. The vertebral arteries are codominant. 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 No high-grade stenosis or focal vessel cut off is seen throughout the intracranial circulation. Jugular veins: Patent bilaterally. Dural sinuses: Patent. Lung apices: Partially visualized upper lobe lung parenchyma appears clear. Soft tissues: The visualized pharyngeal soft tissues are normal in appearance noting angiographic pha se technique. The oropharyngeal airway appears widely patent. The salivary and thyroid glands are nor mal in appearance. No cervical lymphadenopathy is seen. Skeletal structures: The skeletal structures are osteopenic. The calvarium appears intact. The cervic al spine is maintained noting mild multilevel spondylosis. No lytic or blastic lesion is seen. Orbits: The bony orbits are intact. Orbital contents are normal as visualized noting bilateral ocular lens implants. Sinuses and mastoids: The paranasal sinuses are clear. The mastoid air cells are well pneumatized. IMPRESSION: 1. There is loss of rodrigues-white matter differentiation identified in left occipital lobe which could r epresent a subacute versus chronic infarct. 2. 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 3. There is no hemorrhage or mass effect. 4. 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 5. 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 6. Otherwise unremarkable CT angiograms of the head and neck. ACT 112: Negative or not required by law. Electronically signed by: Naresh Shields M.D. 07/11/2021 7:19 AM
[2021-07-11] MEDS ORDERED: DULoxetine HCL 30 MG CAP PO SCH (09:00)
[2021-07-11] MEDS ORDERED: lamoTRIgine 100 MG TAB PO SCH ×3 (09:00→21:00)
[2021-07-11] MEDS ORDERED: amLODIPine BESYLATE 5 MG TAB PO SCH (09:00)
[2021-07-11] MEDS ORDERED: SOTALOL HCL 80 MG TAB PO SCH (09:00)
--- NOTE | 2021-07-11 10:07 | Electrocardiogram Report ---
Test Reason : Blood Pressure : / mmHG Vent. Rate : 078 BPM Atrial Rate : 078 BPM P-R Int : 290 ms QRS Dur : 148 ms QT Int : 440 ms P-R-T Axes : 077 -74 033 degrees QTc Int : 501 ms Poor data quality, interpretation may be adversely affected Sinus rhythm with 1st degree A-V block Left axis deviation Right bundle branch block Minimal voltage criteria for LVH, may be normal variant Abnormal ECG No previous ECGs available Confirmed by Olayinka Washington ([id number]) on 07/11/2021 10:07:04 AM Referred By: REFERRED SELF Confirmed By:Abilio Washington
--- NOTE | 2021-07-11 10:08 | Electrocardiogram Report ---
Test Reason : Blood Pressure : / mmHG Vent. Rate : 143 BPM Atrial Rate : 141 BPM P-R Int : 000 ms QRS Dur : 154 ms QT Int : 374 ms P-R-T Axes : 000 -78 060 degrees QTc Int : 577 ms Atrial fibrillation with rapid ventricular response with premature ventricular or aberrantly conducte d complexes Left axis deviation Right bundle branch block Minimal voltage criteria for LVH, may be normal variant Abnormal ECG When compared with ECG of 11-JUL-2021 01:36, (unconfirmed) Atrial fibrillation has replaced Sinus rhythm Vent. rate has increased BY 65 BPM Confirmed by Olayinka Washington ([id number]) on 07/11/2021 10:08:19 AM Referred By: REFERRED SELF Confirmed By:Abilio Washington
--- NOTE | 2021-07-11 15:24 | Communication Note ---
Date of Service: July 11, 2021 By CMS guidelines, a determination that the admission or continued stay is not medically necessary has been made by a member of the UR committee and a physi darlene for this hospital stay, therefore a Code 44 will be completed and the Inpatient admission will be changed to outpatient.
--- NOTE | 2021-07-11 16:57 | Discharge Summary ---
Date of Service July 11, 2021 Admission HPI Per Admitting Provider Vladislav Alvarez is an 80yo male with history of AF, HTN, BPH presenting with confusion. Patient is from out of state, [facility]. He arrived in town with family yesterday for a tomorrow. Patient was in his usual state of health when he went to bed around 21:30. His reports he then woke up shouting, mumbling and confused. EMS was called - possible right facial droop noted. He presented to [facility] as a Code Stroke. Imaging obtained and unremarkable for acute hemorrhage or significant stenosis/aneurysm. Patient then had a witnessed tonic-clonic seizure in the ER lasting < 1minute. , daugher and son-in-law are at bedside and provide additional history. The state the patient had no complaints during the day. He was eating well and acting his usual. He did possibly miss his PM medications. Daughter states that patient has become confused in the past with missing his medications. In the ER he was administered 3mg Ativan IV as well as Keppra load. He was confused and slightly combative during my encounter. He is unable to answer questions, follow commands or participate in the exam. Family is at bedside and is able to calm him down slightly. Principal Diagnosis Seizure Discharge Exam Constitutional WD/WN, vitals as above Eyes EOM intact bilaterally; no conjunctival abnormality ENMT external ear and nose normal, oropharynx normal Neck trachea midline, no thyromegaly normal visual inspection Respiratory normal respiratory effort, lungs clear to auscultation no respiratory distress Cardiovascular RRR, no murmur, no edema Gastrointestinal (Abdomen) Inspection/Auscultation: abdomen normal to inspection; abdomen not distended Musculoskeletal no cyanosis or clubbing, extremities motor strength 5/5 Skin no rashes, warm and dry Neurologic moves all extremities and awake Psychiatric Orientation: alert, oriented to person and cooperative Discharge Data Allergies Allergy/AdvReac Type Severity Reaction Status Date / Time cefuroxime [From Ceftin] Allergy Intermediate ITCHINESS Verified 07/11/21 02:02 cephalexin [From Keflex] Allergy Intermediate ITCHINESS Verified 07/11/21 02:02 Ordered Studies 07/11/21 01:22 CT angio head w con Stat CT angio neck with con Stat CT head/brain wo con Stat Hospital Course (1) Seizure: Longstanding history of seizures. He had several over the last 15 years. Was previously on Keppra which was discontinued due to minor side effects. Keppra loaded + Ativan in ER - Continue Lamictal - Seizure precautions - Discussed with home neurologist, Kenia Allison who recommended increasing Lamictal 200 mg PO BID. Did not want to restart Keppra given prior confusion. - Did not complete MRI while inpatient. It was delayed until the afternoon. Dr. Allison did not feel strongly about it as he had prior CVAs and so, even if it showed a small acute CVA was optimized. Family supported this as they felt like given his age, less medical intervention was a good idea. (2) Altered mental status: Confusion. Back to baseline by discharge. (3) BPH (benign prostatic hyperplasia): Chronic. Stable. -Continue tamsulosin -Bladder scan as needed (4) Hypertension: Blood pressure acceptable -Continue amlodipine -Monitor (5) Atrial fibrillation: Tachycardic with agitation, heart rate improves as patient calms down - Continue Sotalol -No anticoagulation - ?history of microhemorrhages in brain? - Converted to sinus before discharge. HR in the 50 - 60 range. Total Time Total Time Spent Total Time Spent (In Minutes): 45 Discharge Plan Discharge Items Patient Disposition: Home - Self-Care Reason For Visit: SEIZURE Discharge Diagnosis: Seizure Activity: Resume your previous activity Non-emergency contact: Primary Care Provider and Neurologist Call non-emergency contact if: your symptoms worsen Follow-up/Referrals: Tanya Middleton CONTRACT CONSULTANT [Primary Care Provider] - Diet: Regular Addtl Attending Provider Instructions: Mr. Alvarez, You were admitted to the hospital with a seizure overnight. We think it is possible that you missed a dose of Lamictal. We discussed it with Dr. Allison who felt that slightly increasing your Lamictal would better cover you and prevent further seizures. Our CT scans showed your old strokes which we knew about, and also two small aneurysms. I did relay these findings to Dr. Allison who did not feel any action was needed at this time, but she would like to follow up with you in the clinic when you get home. Pending Studies at Discharge: No Stand-Alone Forms: My [facility] [employer], Smoking Cessation Medications and DC Order Prescriptions: Continued sotalol 80 mg Tablet 80 mg PO QAM RF: 0 amlodipine 5 mg Tablet 5 mg PO DAILY RF: 0 acetaminophen [Tylenol Extra Strength] 500 mg Tablet 1,000 mg PO DIRECTED PRN (Reason: Pain) RF: 0 pravastatin 80 mg Tablet 80 mg PO HS RF: 0 tamsulosin [Flomax] 0.4 mg Capsule 0.4 mg PO HS RF: 0 ibuprofen [Advil] 200 mg Tablet 400 - 600 mg PO DIRECTED PRN (Reason: Pain) RF: 0 duloxetine [Cymbalta] 30 mg Capsule,Delayed Release(Dr/Ec) 30 mg PO DAILY RF: 0 Changed lamotrigine [Lamictal] 100 mg Tablet 200 mg PO BID Qty: 60 RF: 0 Discharge Orders: Discharge Order (Routine); Ordered 07/11/21 Ordered By: Capo Zuñiga Admission Data Admit Date/Time: 07/11/21 03:21 Attending Provider: Capo Zuñiga Admit Provider: Rox Horn Primary Care Provider: Tanya Middleton Other Interventions: Discharge Summary Assessment (RN) Last Done: 07/11/21 15:52 Coding Level of Care Code 78576 OBS Care - Discharge Diagnoses Altered mental status R41.82 Altered mental status type: unspecified Seizure R56.9 BPH (benign prostatic hyperplasia) N40.0 Hypertension I10 Atrial fibrillation I48.91 Atrial fibrillation type: unspecified
[2021-07-11] MEDS ORDERED: PRAVASTATIN SOD 40 MG TAB PO SCH (21:00)
[2021-07-11] MEDS ORDERED: TAMSULOSIN HCL 0.4 MG CAP PO SCH (21:00)
[2021-07-11] MEDS ORDERED: lamoTRIgine 25 MG TAB PO SCH (21:00)
== END 2021-07-11 16:14 | disposition home or self-care (01) | DRG 101 ==
LOC: EDBD → ED 01:20 → 2E 03:21 → SUATTDRO 03:21 → 2E 04:13